=== PATIENT | female | born 1995 | race Caucasian/White ===

== ENCOUNTER 2016-09-08 18:55 | Outpatient (CLI) | payer BC ==
[2016-09-08 19:54] LABS: Appearance,Urine Clear (Clear); Bilirubin,Urine Negative (Negative); Glucose,Urine (UA) Negative (Negative); Ketones,Urine Negative (Negative); Leukocyte Esterase,Urine Negative (Negative); Nitrite,Urine Negative (Negative); Protein,Urine Negative (Negative); Specific Gravity,Urine 1.007 (1.001-1.035); UA Billing (MACRO vs. MICRO) CHEM; Urobilinogen,Urine <2.0 mg/dL (<2.0)
[2016-09-08 20:10] VITALS: BP 127/75; PULSE 98; RESP 17; TEMP 98.3
== END 2016-09-08 19:59 | disposition home or self-care (01) ==
LOC: FBPOP 18:55
PROVIDERS: ATTEND Obstetrics & Gynecology
DX: O26.93 Pregnancy related conditions, unspecified, third trimester (principal); Z3A.00 Weeks of gestation of pregnancy not specified
CPT/HCPCS: 81003; 99213

== ENCOUNTER → 2016-09-17 | Outpatient (CLI) | payer BC, OTHER ==
--- NOTE | 2016-09-17 10:22 | US ---
EXAMINATION TYPE: US venous doppler duplex LE LT DATE OF EXAM: 09/17/2016 10:11 AM COMPARISON: NONE CLINICAL HISTORY: 21-year-old female with LLE Leg Pain r60.0 Edema Left Leg M79.605. Left leg pain an d swelling x 1 week SIDE PERFORMED: Left TECHNIQUE: The lower extremity deep venous system is examined utilizing real time linear array sonog regan with graded compression, doppler sonography and color-flow sonography. FINDINGS: VESSELS IMAGED: External Iliac Vein (EIV) Common Femoral Vein Deep Femoral Vein Greater Saphenous Vein * Femoral Vein Popliteal Vein Small Saphenous Vein * Proximal Calf Veins (* superficial vessels) Left Leg: Appears negative for DVT IMPRESSION: No evidence for DVT within the left lower extremity imaged from the groin to the upper calf.
== END ==
LOC: RADUSWWP 09:37
PROVIDERS: ATTEND Family Medicine
DX: M79.605 Pain in left leg (principal); R60.0 Localized edema

== ENCOUNTER 2016-09-21 08:17 | Outpatient (CLI) | payer BC, OTHER ==
[2016-09-21 09:05] VITALS: BP 106/55; PULSE 71; RESP 20; TEMP 96.3
[2016-09-21 09:19] LABS: Appearance,Urine Clear (Clear); Bilirubin,Urine Negative (Negative); Glucose,Urine (UA) Negative (Negative); Ketones,Urine Negative (Negative); Leukocyte Esterase,Urine Negative (Negative); Nitrite,Urine Negative (Negative); PH, Urine 6.5 (5.0-8.0); Protein,Urine Negative (Negative); Specific Gravity,Urine 1.009 (1.001-1.035); UA Billing (MACRO vs. MICRO) CHEM; Urobilinogen,Urine <2.0 mg/dL (<2.0)
--- NOTE | 2016-09-25 10:01 | P.MSEPDOC ---
Presenting Problems - Arrival Data Date of Arrival on Unit: 09/21/16 Time of Arrival on Unit: 08:30 Mode of Transport: Ambulatory - Complaint OB-Reason for Admission/Chief Complaint: Pain Comment: Cramping since 299. States pain is a 4 on 0-10 scale at it's worst. States that pain is pretty much constant. Medical History - Information : 1 Para: 0 Term: 0 : 0 Abortions: Spontaneous or Elective: 0 Number of Living Children: 0 - Gestational Age Expected Date of Delivery: 12/14/16 Gestational Age by SCOTTIE (wks/days): 28 Weeks and 4 Days Review of Systems - Review of Systems Constitutional: No problems Breast: No problems ENT: No problems Cardiovascular: No problems Respiratory: No problems Gastrointestinal: No problems Genitourinary: No problems Musculoskeletal: No problems Neurological: No problems Skin: No problems Vital Signs - Temperature Temperature: 96.3 F Temperature Source: Temporal Artery Scan - Pulse Right Brachial Pulse Rate: 71 Pulse Assessment Method: Automatic Cuff - Respirations Respiratory Rate: 20 Oxygen Delivery Method: Room Air O2 Sat by Pulse Oximetry: 98 - Blood Pressure Right Arm Blood Pressure: 106/55 Blood Pressure Mean: 72 Blood Pressure Source: Automatic Cuff Medical Screen Scoring (Pre) - Cervical Exam Dilation: 0 cm = 0 Membranes: Intact - Uterine Contractions Frequency: N/A Duration: N/A Intensity: N/A - Maternal Vital Signs Maternal Temperature: N/A Maternal Blood Pressure: N/A Signs of Preeclampsia: N/A Maternal Respirations: N/A - Maternal Trauma Maternal Trauma: N/A - Assessment Baseline FHR: 140 Heart Rate - NICHD Category: Category I (Normal) = 0 Station: N/A - Total Score Total Score (Pre): 0 - Level of Risk Level of Risk: Low (0-5) Physician Notification (Pre) - Physician Notified Physician Notified Date: 09/21/16 Physician Notified Time: 09:05 Physician/Practitioner Notifed:: Dr. Sultana Spoke With: Dr. Sultana New Order Received: Yes Medical Screen Scoring (Post) - Cervical Exam Dilation: 0 cm = 0 Membranes: Intact - Uterine Contractions Frequency: N/A Duration: N/A Intensity: N/A - Maternal Vital Signs Maternal Temperature: N/A Maternal Blood Pressure: N/A Signs of Preeclampsia: N/A Maternal Respirations: N/A - Maternal Trauma Maternal Trauma: N/A - Assessment Heart Rate: 135 Heart Rate - NICHD Category: Category I (Normal) = 0 Position: N/A Station: N/A - Total Score Total Score (Post): 0 - Post Treatment Level of Risk Post Treatment Level of Risk: Low (0-5) Physician Notification (Post) - Physician Notified Physician Notified Date: 09/21/16 Physician Notified Time: 10:05 Physician/Practitioner Notified:: Dr. Sultana Spoke With: Dr. Sultana New Order Received: Yes Disposition - Disposition OB Disposition: Triage, Discharge to home Transferred to:: Home Discharge Date: 09/21/16 Discharge Time: 10:10 I agree with the RN Medical Screening Exam: Yes Risk & Benefit of care provided described in d/c instruction: Yes Diagnosis: UNSPECIFIED ABDOMINAL PAIN
== END 2016-09-21 10:10 | disposition home or self-care (01) ==
LOC: FBPOP 08:17
PROVIDERS: ATTEND Obstetrics & Gynecology
DX: O99.89 Other specified diseases and conditions complicating pregnancy, childbirth and the puerperium (principal); R10.9 Unspecified abdominal pain; Z3A.28 28 weeks gestation of pregnancy
CPT/HCPCS: 81003; 82731; 99213

== ENCOUNTER 2016-11-29 09:13 | Outpatient (CLI) | payer BC, OTHER ==
[2016-11-29 10:07] VITALS: BP 109/64; PULSE 95; RESP 16; TEMP 96.2
--- NOTE | 2016-12-02 19:53 | P.MSEPDOC ---
Presenting Problems - Arrival Data Date of Arrival on Unit: 11/29/16 Time of Arrival on Unit: 09:24 Mode of Transport: Ambulatory - Complaint OB-Reason for Admission/Chief Complaint: Other Comment: diahrrea and cramping x2 days. Medical History - Information : 1 Para: 0 Term: 0 : 0 Abortions: Spontaneous or Elective: 0 Number of Living Children: 0 - Gestational Age Expected Date of Delivery: 12/14/16 Gestational Age by SCOTTIE (wks/days): 38 Weeks and 2 Days Review of Systems - Review of Systems Constitutional: No problems Breast: No problems ENT: No problems Cardiovascular: No problems Respiratory: No problems Gastrointestinal: No problems Genitourinary: No problems Musculoskeletal: No problems Neurological: No problems Skin: No problems Comment: hx ashma. no meds Vital Signs - Temperature Temperature: 96.2 F Temperature Source: Tympanic - Pulse Right Radial Pulse Rate: 95 Pulse Assessment Method: Automatic Cuff - Respirations Respiratory Rate: 16 Oxygen Delivery Method: Room Air O2 Sat by Pulse Oximetry: 98 - Blood Pressure Right Arm Blood Pressure: 109/64 Blood Pressure Mean: 79 Blood Pressure Source: Automatic Cuff Medical Screen Scoring (Pre) - Cervical Exam Dilation: 1-3 cm = 1 Membranes: Intact - Uterine Contractions Frequency: N/A - Maternal Vital Signs Maternal Temperature: N/A Maternal Blood Pressure: N/A Signs of Preeclampsia: N/A Maternal Respirations: N/A - Maternal Trauma Maternal Trauma: N/A - Assessment Baseline FHR: 130 Heart Rate - NICHD Category: Category I (Normal) = 0 NST: Reactive Position: N/A Station: N/A - Total Score Total Score (Pre): 1 - Level of Risk Level of Risk: Low (0-5) Physician Notification (Pre) - Physician Notified Physician Notified Date: 11/29/16 Physician Notified Time: 10:00 Physician/Practitioner Notifed:: ingrid Spoke With: ingrid New Order Received: Yes (discharge home) Disposition - Disposition OB Disposition: Discharge to home, Written follow up instructions reviewed Discharge Date: 11/29/16 Discharge Time: 10:30 I agree with the RN Medical Screening Exam: Yes Risk & Benefit of care provided described in d/c instruction: Yes Diagnosis: DIARRHEA, UNSPECIFIED
== END 2016-11-29 10:30 | disposition home or self-care (01) ==
LOC: FBPOP 09:13
PROVIDERS: ATTEND Obstetrics & Gynecology
DX: O99.89 Other specified diseases and conditions complicating pregnancy, childbirth and the puerperium (principal); R19.7 Diarrhea, unspecified; Z3A.38 38 weeks gestation of pregnancy
CPT/HCPCS: 59025; 99213

== ENCOUNTER 2016-12-15 16:16 | Outpatient (CLI) | payer BC ==
[2016-12-15 17:36] VITALS: BP 127/75; PULSE 74; RESP 18; TEMP 98.1
--- NOTE | 2016-12-29 13:25 | P.MSEPDOC ---
Presenting Problems - Arrival Data Date of Arrival on Unit: 12/15/16 Time of Arrival on Unit: 16:45 Mode of Transport: Ambulatory - Complaint OB-Reason for Admission/Chief Complaint: Possible Onset of Labor Medical History - Information : 1 Para: 0 Term: 0 : 0 Abortions: Spontaneous or Elective: 0 Number of Living Children: 0 - Gestational Age Expected Date of Delivery: 12/14/16 Gestational Age by SCOTTIE (wks/days): 42 Weeks and 1 Days Review of Systems - Review of Systems Constitutional: No problems Breast: No problems ENT: No problems Cardiovascular: No problems Respiratory: No problems Gastrointestinal: No problems Genitourinary: No problems Musculoskeletal: No problems Neurological: No problems Skin: No problems Vital Signs - Temperature Temperature: 98.1 F Temperature Source: Oral - Pulse Right Brachial Pulse Rate: 74 Pulse Assessment Method: Automatic Cuff - Respirations Respiratory Rate: 18 Oxygen Delivery Method: Room Air O2 Sat by Pulse Oximetry: 98 - Blood Pressure Right Arm Blood Pressure: 127/75 Blood Pressure Mean: 92 Blood Pressure Source: Automatic Cuff Medical Screen Scoring (Pre) - Cervical Exam Dilation: Exam Deferred Effacement: Exam Deferred - Uterine Contractions Frequency: > or = 36 weeks =2 Duration: N/A Intensity: N/A - Maternal Vital Signs Maternal Temperature: N/A Maternal Blood Pressure: N/A Signs of Preeclampsia: N/A Maternal Respirations: N/A - Maternal Trauma Maternal Trauma: N/A - Assessment Baseline FHR: 130 Heart Rate - NICHD Category: Category I (Normal) = 0 NST: Reactive Position: N/A Station: N/A - Total Score Total Score (Pre): 2 - Level of Risk Level of Risk: N/A Physician Notification (Pre) - Physician Notified Physician Notified Date: 12/15/16 Physician Notified Time: 17:00 Physician/Practitioner Notifed:: YES Spoke With: HOWARD New Order Received: Yes - Notification Comment Comment: OBSERVE FOR ACTIVE LABOR Medical Screen Scoring (Post) - Cervical Exam Dilation: 1-3 cm = 1 Membranes: Intact - Uterine Contractions Frequency: > or = 36 weeks =2 Duration: > 40 seconds = 2 Intensity: N/A - Maternal Vital Signs Maternal Temperature: N/A Maternal Blood Pressure: N/A Signs of Preeclampsia: N/A Maternal Respirations: N/A - Maternal Trauma Maternal Trauma: N/A - Assessment Heart Rate: 130 Heart Rate - NICHD Category: Category I (Normal) = 0 NST: Reactive Position: N/A Station: N/A - Total Score Total Score (Post): 5 - Post Treatment Level of Risk Post Treatment Level of Risk: Low (0-5) Physician Notification (Post) - Physician Notified Physician Notified Date: 12/15/16 Physician Notified Time: 18:05 Physician/Practitioner Notified:: yes Spoke With: howard New Order Received: Yes - Notification Comment Comment: discharge home Disposition - Disposition OB Disposition: Discharge to home Discharge Date: 12/15/16 Discharge Time: 18:10 I agree with the RN Medical Screening Exam: Yes Risk & Benefit of care provided described in d/c instruction: Yes Diagnosis: ENCOUNTER FOR FULL-TERM UNCOMPLICATED DELIVERY
== END 2016-12-15 18:10 | disposition home or self-care (01) ==
LOC: FBPOP 16:16
PROVIDERS: ATTEND Obstetrics & Gynecology
DX: Z34.83 Encounter for supervision of other normal pregnancy, third trimester (principal); Z3A.42 42 weeks gestation of pregnancy
CPT/HCPCS: 59025; 99213

== ENCOUNTER 2016-12-16 03:10 | Inpatient (IN) | payer BC, OTHER ==
[2016-12-16] MEDS ORDERED: METHYLERGONOVINE 0.2 MG/ML 1 ML AMP IM PRN (03:38)
[2016-12-16] MEDS ORDERED: CARBOPROST TROMETHAMINE 250 MCG/ML 1 ML AMP IM PRN (03:38)
[2016-12-16] MEDS ORDERED: OXYTOCIN 10 UNIT/ML 1 ML VIAL IM PRN (03:38)
[2016-12-16] MEDS ORDERED: TERBUTALINE 1 MG/ML VIAL SQ PRN (03:38)
[2016-12-16] MEDS ORDERED: LIDOCAINE 1% (PF) 10 MG/ML (30 ML SDV) SQ PRN (03:38)
[2016-12-16] MEDS ORDERED: OXYTOCIN 20 UNITS/1000 ML NS 1,000 ML IV SCH ×2 (03:45→12:30)
[2016-12-16 04:02] VITALS: BMI 34.2
[2016-12-16] MEDS: LACTATED RINGERS 1,000 ML IV SCH ×4 (04:10→23:06)
[2016-12-16 04:15] LABS: Basophils % (A) 0 %; CH 28.9; CHCM 33.9; Eosinophils # (A) 0.2 k/uL (0-0.7); Eosinophils % (A) 2 %; HCT 33.5 % (34.0-46.0); HGB 10.9 gm/dL (11.4-16.0); Luc # (Auto) 0.11; Luc % (Auto) 1; Lymphocytes # (A) 1.6 k/uL (1.0-4.8); Lymphocytes % (A) 13 %; MCHC 32.7 g/dL (31.0-37.0); MCV 85.7 fL (80.0-100.0); Monocytes # (A) 0.5 k/uL (0-1.0); Monocytes % (A) 4 %; Neutrophils # (A) 9.7 k/uL (1.3-7.7); Neutrophils % (A) 80 %; RBC 3.91 m/uL (3.80-5.40); RDW 14.1 % (11.5-15.5); WBC 12.1 k/uL (3.8-10.6); WBC (Perox) 12.75
[2016-12-16] MEDS: BUTORPHANOL 1 MG/ML 1 ML VIAL IV PRN ×2 (04:22→07:16)
[2016-12-16] MEDS ORDERED: fentaNYL (PF) 50 MCG/ML 5 ML AMP ONE ×2 (08:47→10:52)
[2016-12-16] MEDS ORDERED: BUPIVACAINE (PF) 0.25% 30 ML VIAL ONE ×2 (08:47→10:52)
[2016-12-16] MEDS ORDERED: SODIUM CHLORIDE 0.9% 100 ML BAG ONE ×2 (08:47→10:52)
--- NOTE | 2016-12-16 09:43 | P.HPOB ---
History of Present Illness H&P Date: 12/16/16 Chief Complaint: Contractions MRSA is a very pleasant 21-year-old 1 para 0 at 40-2/7 weeks, EDC 12/14 that presented to labor and delivery with complaints of contractions. She states the contractions have increased in nature since her earlier visit to labor and delivery she did deny loss of fluid. She notes good movement and denies vaginal bleeding. Review of Systems Constitutional: Reports as per HPI, Denies chills, Denies fever Past Medical History Past Medical History: No Reported History History of Any Multi-Drug Resistant Organisms: None Reported Past Surgical History: No Surgical Hx Reported Past Anesthesia/Blood Transfusion Reactions: No Reported Reaction Past Psychological History: No Psychological Hx Reported Smoking Status: Never smoker - Past Family History Father Family Medical History: No Reported History Medications and Allergies Home Medications Medication Instructions Recorded Confirmed Type Pnv,Calcium 72/Iron/Folic Acid 1 each PO DAILY 09/08/16 12/16/16 History [ Plus Tablet] Allergies Allergy/AdvReac Type Severity Reaction Status Date / Time No Known Allergies Allergy Verified 12/16/16 03:24 Exam Osteopathic Statement: *. No significant issues noted on an osteopathic structural exam other than those noted in the History and Physical/Consult. - Vital Signs Vital signs: Vital Signs Temp Pulse Resp BP Pulse Ox 12/16/16 03:57 97.6 F 82 16 116/63 98 12/16/16 03:25 96.7 F L 82 16 116/63 98 Intake and Output 12/15/16 12/16/16 12/16/16 22:59 06:59 14:59 Other: # Voids 1 Weight 93.44 kg - OBG Physical Exam Vulva: both: normal Cervix: 4 cm dilated, per RN on admission Uterus: Gravid and appropriate for gestational age Anus/Rectum: normal perianal skin Results Result Diagrams: 12/16/16 04:05 Abnormal Lab Results - Last 24 Hours (Table) 12/16/16 Range/Units 04:05 WBC 12.1 H (3.8-10.6) k/uL Hgb 10.9 L (11.4-16.0) gm/dL Hct 33.5 L (34.0-46.0) % Neutrophils # 9.7 H (1.3-7.7) k/uL Assessment and Plan (1) Active labor at term Narrative/Plan: Patient is admitted to labor and delivery for expectant management, pain control per patient request, anticipate spontaneous vaginal delivery Status: Acute
[2016-12-16] MEDS ORDERED: BUPIVACAINE (PF) 0.25% 25 ML, fentaNYL (PF) 200 MCG in SODIUM CHLORIDE 0.9% 71 ML EPIDURAL ONE (09:48)
[2016-12-16] MEDS ORDERED: KETOROLAC 30 MG/ML 1 ML VIAL ONE (10:52)
[2016-12-16] MEDS ORDERED: ACETAMINOPHEN IV (For NPO) 1,000 MG/100 ML VIAL ONE (10:52)
[2016-12-16] MEDS ORDERED: OXYTOCIN 10 UNIT/ML 1 ML VIAL ONE (10:52)
--- NOTE | 2016-12-16 11:48 | P.OP ---
Date of Procedure: 12/16/16 Preoperative Diagnosis: Intrauterine at 40-2/7 weeks, nonreassuring heart tones, meconium-stained fluid remote from delivery Postoperative Diagnosis: Same Procedure(s) Performed: Primary low transverse section Implants: Anesthesia: epidural Surgeon: Bianca Núñez [employer] #1: Bubba Lara Estimated Blood Loss (ml): 500 IV fluids (ml): 1,250 Urine output (ml): 200 Pathology: other (Placenta) Condition: stable Disposition: observation Indications for Procedure: This is a 21-year-old 1 para 0 that presented to labor and delivery with complaints of active labor. On admission she was 4 cm 90% effaced at a -2 station. She progressed in labor to 5-680% -1. At this time she requested an epidural. Epidural was placed without difficulty. Pain control was good after a certain amount of time, artificial rupture of membranes was performed and meconium-stained fluid was noted. heart tones were noted to be reassuring with moderate variability after rupture of membranes but subsequent decelerations were noted down to the 80s and 90s therefore the decision was made to perform a primary low transverse section secondary to nonreassuring heart tones and remoteness from delivery. Operative Findings: Normal uterus tubes and ovaries were appreciated Description of Procedure: The patient was prepped and draped in the usual fashion after spinal anesthesia was administered by the anesthesia department . A Pfannenstiel incision was made and extended of the abdominal cavity without difficulty. The bladder peritoneum was elevated and incised and reflected distally. A 2 cm incision was made in the transverse plane of the lower uterine segment to enter the uterus at which time meconium stained fluid was noted. The incision was extended in both directions bluntly. The head was encountered within the field and delivered up and through the incision where the nose and mouth were thoroughly suctioned. Remainder of the was delivered onto the surgical field where the cord was doubly clamped, cut, and the was passed for resuscitative measures with weight 7-14 and Apgars 9 9 at 1 and 5 mins . A segment of cord was then doubly clamped, cut, and set aside should cord gases become necessary. The placenta was delivered manually, intact, and was grossly normal with a grossly normal three-vessel cord. The uterus was exteriorized and the interior cavity of the uterus swept of any remaining placental and membranous fragments with a laparotomy sponge. The margins of the incision were grasped with brenton clamps and the incision closed. . First layer was a running locking layer of 0 vicryl. Any small points of bleeding were then made hemostatic with the Bovie. Once hemostasis was achieved, the posterior cul-de- sac was suctioned with a guard and the uterine and ovarian findings are as noted above. The uterus was replaced within the abdominal cavity and the gutters swept of any remaining blood fluid or clot. The incision was again reexamined and hemostasis was noted to be excellent. Any small point of bleeding were made hemostatic with the Bovie. Once hemostasis was achieved the parietal peritoneum was loosely reapproximated. The layer of muscles were examined and made hemostatic with the Bovie. Attention was then turned to the fascia which was closed with 0 running stitches of 0 Vicryl proceeding from the lateral margins to the midpoint. The subcutaneous tissues were irrigated, made hemostatic with the Bovie.. The skin was reapproximated with 4-0. Estimated blood loss for the case was approximately 500 mL. All sponge instrument and needle counts are correct. There were no complications. The patient tolerated the procedure well and proceeded to the recovery room in stable condition. Both mother and infant are resting comfortably in recovery.
[2016-12-16] MEDS ORDERED: IBUPROFEN 600 MG TAB PO PRN (12:25)
[2016-12-16] MEDS ORDERED: SIMETHICONE 80 MG CHEWABLE PO PRN (12:25)
[2016-12-16] MEDS ORDERED: ONDANSETRON 4 MG/2 ML VIAL IVP PRN (12:25)
[2016-12-16] MEDS ORDERED: METOCLOPRAMIDE 5 MG/ML 2 ML VIAL IVP PRN (12:25)
[2016-12-16] MEDS ORDERED: diphenhydrAMINE 50 MG CAP PO PRN (12:25)
[2016-12-16] MEDS ORDERED: ZOLPIDEM 5 MG TAB PO PRN (12:25)
[2016-12-16] MEDS ORDERED: NALOXONE 0.4 MG/ML 1 ML VIAL IV PRN (12:25)
[2016-12-16] MEDS ORDERED: diphenhydrAMINE 25 MG CAP PO PRN (12:25)
[2016-12-16] MEDS ORDERED: ACETAMINOPHEN TAB 325 MG TAB PO PRN (12:25)
[2016-12-16] MEDS ORDERED: diphenhydrAMINE 50 MG/ML 1 ML VIAL IVP PRN ×2 (12:25)
[2016-12-16] MEDS ORDERED: CITRIC ACID-SODIUM CITRATE 15 ML CUP PO ONE (12:29)
[2016-12-16] MEDS ORDERED: MORPHINE SULFATE 2 MG/ML SYRINGE IVP PRN (16:16)
[2016-12-16] MEDS ORDERED: ACETAMINOPHEN IV (For NPO) 1,000 MG in EMPTY BAG 1 BAG IVPB PRN (16:18)
[2016-12-16] MEDS: IBUPROFEN IV 600 MG in SODIUM CHLORIDE 0.9% 250 ML IV SCH (18:49)
[2016-12-16] MEDS: ceFAZolin 2 GM in SODIUM CHLORIDE 0.9% 100 ML IVPB SCH (19:45)
[2016-12-16] MEDS: SENNOSIDES-DOCUSATE SODIUM 1 EACH TAB PO SCH (22:24)
[2016-12-17] MEDS: IBUPROFEN IV 600 MG in SODIUM CHLORIDE 0.9% 250 ML IV SCH ×3 (00:35→21:14)
[2016-12-17] MEDS: LACTATED RINGERS 1,000 ML IV SCH ×2 (02:53→14:19)
[2016-12-17] MEDS: ceFAZolin 2 GM in SODIUM CHLORIDE 0.9% 100 ML IVPB SCH (03:10)
[2016-12-17 07:01] LABS: Basophils % (A) 0 %; CH 28.8; CHCM 32.9; Eosinophils # (A) 0.1 k/uL (0-0.7); Eosinophils % (A) 1 %; HCT 27.8 % (34.0-46.0); HDW 3.22; Luc # (Auto) 0.14; Luc % (Auto) 1; Lymphocytes # (A) 1.2 k/uL (1.0-4.8); Lymphocytes % (A) 11 %; MCH 28.2 pg (25.0-35.0); MCHC 32.1 g/dL (31.0-37.0); MCV 87.9 fL (80.0-100.0); Monocytes # (A) 0.5 k/uL (0-1.0); Monocytes % (A) 5 %; Neutrophils # (A) 8.9 k/uL (1.3-7.7); Neutrophils % (A) 81 %; RBC 3.17 m/uL (3.80-5.40); RDW 14.3 % (11.5-15.5)
[2016-12-17 07:04] LABS: HGB 8.9 gm/dL (11.4-16.0)
--- NOTE | 2016-12-17 08:42 | P.PNOBGPC ---
Subjective - Subjective Patient reports: Reports appetite normal, Reports voiding normally, Reports pain well controlled, Reports ambulating normally : doing well Objective - Vital Signs Latest vital signs: Vital Signs Temp Pulse Pulse Resp BP Pulse Ox 12/17/16 04:00 98.1 F 75 20 98/62 100 12/17/16 00:00 98.1 F 80 18 112/69 100 12/16/16 20:00 98.4 F 80 18 98/70 100 12/16/16 17:05 98/52 12/16/16 15:30 97.5 F L 76 16 95/55 98 12/16/16 13:55 98.4 F 80 18 106/60 12/16/16 13:15 98.6 F 79 18 107/56 97 12/16/16 12:45 114 H 18 127/76 12/16/16 12:15 101 H 18 114/55 98 12/16/16 12:00 107 H 20 125/63 98 12/16/16 11:45 96.7 F L 108 H 18 124/59 98 Intake and Output 12/16/16 12/17/16 12/17/16 22:59 06:59 14:59 Output Total 205 1000 Balance -2049 -1000 Output: Urine 1550 1000 Estimated Blood Loss 500 - Exam Extremities: Present: normal Abdomen: Present: normal appearance, soft. Absent: distention, tenderness Incision: Present: normal, dry, intact Uterus: Present: normal, firm (The uterine fundus as tonic and nontender at the umbilicus.) - Labs Labs: Abnormal Lab Results - Last 24 Hours (Table) 12/17/16 Range/Units 06:30 WBC 11.0 H (3.8-10.6) k/uL RBC 3.17 L (3.80-5.40) m/uL Hgb 8.9 L D (11.4-16.0) gm/dL Hct 27.8 L (34.0-46.0) % Neutrophils # 8.9 H (1.3-7.7) k/uL Assessment and Plan (1) S/P section Narrative/Plan: Continue routine postoperative care. I will transition her to oral Tylenol 3 for pain control. I have encouraged her to ambulate in the halls at least 4 times daily. Possible discharge tomorrow morning pending no complications and the patient desire to be discharged. Current Visit: Yes Status: Acute Code(s): Z98.891 - HISTORY OF UTERINE SCAR FROM PREVIOUS SURGERY SNOMED Code(s): 177842727
[2016-12-17] MEDS ORDERED: Acetaminophen-Codeine 300-30mg TAB PO PRN (08:50)
[2016-12-17] MEDS: Acetaminophen-Codeine 300-30mg TAB PO PRN ×3 (09:05→21:09)
[2016-12-17] MEDS: SENNOSIDES-DOCUSATE SODIUM 1 EACH TAB PO SCH ×2 (09:06→21:11)
[2016-12-17] MEDS: IBUPROFEN 600 MG TAB PO SCH ×2 (12:51→18:45)
[2016-12-18 00:02] VITALS: RESP 16
[2016-12-18] MEDS: Acetaminophen-Codeine 300-30mg TAB PO PRN (03:11)
[2016-12-18] MEDS: IBUPROFEN 600 MG TAB PO SCH ×2 (08:10)
[2016-12-18] MEDS: SENNOSIDES-DOCUSATE SODIUM 1 EACH TAB PO SCH (08:11)
[2016-12-18 08:21] VITALS: BP 104/58; PULSE 81; TEMP 98
--- NOTE | 2016-12-18 08:45 | P.DS ---
Providers Date of admission: 12/16/16 03:36 Expected date of discharge: 12/18/16 Attending physician: Balta Sultana Primary care physician: Balta Sultana - Discharge Diagnosis(es) (1) S/P section Current Visit: Yes Status: Acute Hospital Course: The patient is a 21-year-old 1 para 0 admitted at 40-2/7 weeks by good dating parameters perches admitted in early labor with all signs reassuring. She progressed to approximately 5-6 cm and had an epidural catheter placed for analgesia. She then underwent artificial rupture of membranes demonstrating meconium-stained fluid. She sure thereafter began to develop nonreassuring heart pattern. She was therefore taken to the operating room for primary low-transverse section at which time she was delivered of a viable 7 lbs. 14 oz. baby girl with Apgars of 9 at 1 minute and 9 at 5 minutes. Her postoperative course was unremarkable vital signs remaining stable and her temperature was afebrile throughout. She was deemed stable for discharge on postoperative day #2 was discharged home to follow-up in the office in 2 weeks for an incision check and 6 weeks routinely. Discharge instructions included calling for any significantly increased bleeding or foul-smelling lochia, significantly increased fever or abdominal pain, perineal complaints, breast complaints, incisional complaints, or anything else that concerned her. She was additionally instructed to have nothing in the vagina for at least 6 weeks time to include intercourse and to abstain from any heavy lifting over the same period of time perches lastly to do no driving until off of all pain medications or 2 weeks' time, whichever came first. She understood her instructions and agrees to follow up as noted above. Discharge medications included a prescription for Tylenol 3, 1-2 by mouth every 6 hours when necessary pain, #30 dispensed with no refills. She is additionally to use over- the-counter analgesic pain medications as necessary and to continue with vitamins daily as she has opted to breast-feed. Maternal blood type is O+ and rubella status is immune. Discharge hemoglobin and hematocrit were 8.9 and 27.8 respectively. Procedures: #1. Epidural analgesia 2. Artificial rupture of membranes 3. Primary low- transverse section Patient Condition at Discharge: Good Plan - Discharge Summary New Discharge Prescriptions: New Acetaminophen-Codeine 300-30mg [Tylenol #3] 2 tab PO Q6H PRN #30 tablet PRN Reason: Pain No Action Pnv,Calcium 72/Iron/Folic Acid [ Plus Tablet] 1 each PO DAILY Discharge Medication List Pnv,Calcium 72/Iron/Folic Acid [ Plus Tablet] 1 each PO DAILY 09/08/16 [ History] Acetaminophen-Codeine 300-30mg [Tylenol #3] 2 tab PO Q6H PRN #30 tablet [Rx] Follow up Appointment(s)/Referral(s): Balta Sultana MD [Primary Care Provider] - 2 Weeks Discharge Disposition: HOME SELF-CARE
== END 2016-12-18 13:45 | disposition home or self-care (01) | DRG 766 ==
LOC: FBPOP 03:10 → 4FBP 03:36
PROVIDERS: ADMIT Obstetrics & Gynecology Obstetrics; ATTEND Obstetrics & Gynecology
PROC: 10D00Z1 Extraction of Products of Conception, Low, Open Approach (ICD-10-PCS; principal; 2016-12-16 11:31)
PROC: 3E0R3CZ (ICD-10-PCS; principal; 2016-12-16 11:31)
PROC: 00HU33Z Insertion of Infusion Device into Spinal Canal, Percutaneous Approach (ICD-10-PCS; principal; 2016-12-16 11:31)
DX: O76 Abnormality in fetal heart rate and rhythm complicating labor and delivery (principal); O77.0 Labor and delivery complicated by meconium in amniotic fluid; Z37.0 Single live birth; Z3A.40 40 weeks gestation of pregnancy
CPT/HCPCS: 59025; 85025; 88307; 99213

== ENCOUNTER 2019-08-20 07:44 | Outpatient (CLI) | payer BC, OTHER ==
[2019-08-20 08:48] LABS: Amorphous Sediment,Urine Few /hpf; Appearance,Urine Turbid (Clear); Bacteria,Urine Rare /hpf; Bilirubin,Urine Negative (Negative); Blood,Urine Negative (Negative); Color,Urine Light Yellow; Glucose,Urine (UA) Negative (Negative); Ketones,Urine Negative (Negative); Leukocyte Esterase,Urine Negative (Negative); Mucus,Urine Rare /hpf; Nitrite,Urine Negative (Negative); Protein,Urine Negative (Negative); Squamous Epithelial Cell,Urine <1 /hpf (0-4); Urobilinogen,Urine <2.0 mg/dL (<2.0)
[2019-08-20 09:49] VITALS: BP 112/65; PULSE 88; RESP 16; TEMP 97.4
--- NOTE | 2019-08-26 10:52 | P.MSEPDOC ---
Presenting Problems - Arrival Data Date of Arrival on Unit: 08/20/19 Time of Arrival on Unit: 07:44 Mode of Transport: Ambulatory - Complaint OB-Reason for Admission/Chief Complaint: Possible Onset of Labor, Scheduled C- Section Comment: contractions w/back pain since 399 Medical History - Information : 2 Para: 1 Term: 1 : 0 Abortions: Spontaneous or Elective: 0 Number of Living Children: 1 - Gestational Age Gestational Age by SCOTTIE (wks/days): 37 Weeks and 6 Days - History Complications: Prior Review of Systems - Review of Systems Constitutional: No problems Breast: No problems ENT: No problems Cardiovascular: No problems Respiratory: No problems Gastrointestinal: No problems Genitourinary: No problems Musculoskeletal: No problems Neurological: No problems Skin: No problems Vital Signs - Temperature Temperature: 97.4 F Temperature Source: Temporal Artery Scan - Pulse Right Brachial Pulse Rate: 88 Pulse Assessment Method: Automatic Cuff - Respirations Respiratory Rate: 16 Oxygen Delivery Method: Room Air - Blood Pressure Right Arm Blood Pressure: 112/65 Blood Pressure Mean: 80 Blood Pressure Source: Automatic Cuff Medical Screen Scoring (Pre) - Cervical Exam Dilation: 0 cm = 0 Membranes: Intact - Uterine Contractions Frequency: > 5 minutes apart = 1 Duration: N/A Intensity: N/A - Maternal Vital Signs Maternal Temperature: N/A Maternal Blood Pressure: N/A Signs of Preeclampsia: N/A Maternal Respirations: N/A - Maternal Trauma Maternal Trauma: N/A - Assessment - Baby A Baseline FHR: 135 Heart Rate - NICHD Category: Category I (Normal) = 0 NST: Reactive Position: N/A Station: N/A - Total Score - Baby A Total Score - Baby A: 1 - Total Score - Baby B Total Score - Baby B: 1 - Total Score - Baby C Total Score - Baby C: 1 - Level of Risk - Baby A Level of Risk - Baby A: Low (0-5) - Level of Risk - Baby B Level of Risk - Baby B: Low (0-5) - Level of Risk - Baby C Level of Risk - Baby C: Low (0-5) Physician Notification (Pre) - Physician Notified Physician Notified Date: 08/20/19 Physician Notified Time: 08:50 New Order Received: Yes (d/c if no cervical change) - Notification Comment Comment: UA wnl, orders recheck. cervix at one hour michelle and if no change then discharge to home with instruction. Dilatation: Closed /Effacement: Thick /Station: High Disposition - Disposition OB Disposition: Triage, Discharge to home Discharge Date: 08/20/19 Discharge Time: 09:30 I agree with the RN Medical Screening Exam: Yes Risk & Benefit of care provided described in d/c instruction: Yes Diagnosis: FALSE LABOR AT OR AFTER 37 COMPLETED WEEKS OF GESTATION
== END 2019-08-20 09:30 | disposition home or self-care (01) ==
LOC: FBPOP 07:44
PROVIDERS: ATTEND Obstetrics & Gynecology Obstetrics
DX: O47.1 False labor at or after 37 completed weeks of gestation (principal); Z3A.37 37 weeks gestation of pregnancy
CPT/HCPCS: 59025; 81001; 99213

== ENCOUNTER 2019-08-28 06:05 | Inpatient (IN) | payer BC, OTHER ==
[2019-08-28] MEDS ORDERED: METHYLERGONOVINE 0.2 MG/ML 1 ML AMP IM PRN (06:23)
[2019-08-28] MEDS ORDERED: CARBOPROST TROMETHAMINE 250 MCG/ML 1 ML AMP IM PRN (06:23)
[2019-08-28] MEDS ORDERED: OXYTOCIN 10 UNIT/ML 1 ML VIAL IM PRN (06:23)
[2019-08-28] MEDS: LACTATED RINGERS 1,000 ML IV SCH ×3 (06:25→18:31)
[2019-08-28] MEDS ORDERED: CITRIC ACID-SODIUM CITRATE 15 ML CUP PO ONE (06:25)
[2019-08-28 06:32] LABS: Basophils % (A) 0 %; Eosinophils # (A) 0.2 k/uL (0-0.7); Eosinophils % (A) 2 %; HCT 31.8 % (34.0-46.0); HGB 10.5 gm/dL (11.4-16.0); Hypochromasia Slight; Lymphocytes # (A) 1.6 k/uL (1.0-4.8); Lymphocytes % (A) 18 %; MCH 27.4 pg (25.0-35.0); MCHC 33.2 g/dL (31.0-37.0); MCV 82.6 fL (80.0-100.0); Mean Platelet Volume 9.1; Monocytes # (A) 0.5 k/uL (0-1.0); Monocytes % (A) 6 %; Neutrophils # (A) 6.6 k/uL (1.3-7.7); Neutrophils % (A) 73 %; Platelet Count 196 k/uL (150-450); Poikilocytosis Slight; RBC 3.85 m/uL (3.80-5.40); RDW 13.7 % (11.5-15.5); WBC 9.1 k/uL (3.8-10.6)
[2019-08-28] MEDS ORDERED: OXYTOCIN 10 UNIT/ML 1 ML VIAL ONE (08:05)
[2019-08-28] MEDS ORDERED: MORPHINE SULFATE (PF) 0.3 MG/0.3 ML SYR ONE (08:05)
[2019-08-28] MEDS ORDERED: ONDANSETRON 4 MG/2 ML VIAL ONE (08:05)
[2019-08-28] MEDS ORDERED: PHENYLEPHRINE-0.9% NACL SYG 1 MG/10 ML SYRINGE ONE (08:05)
[2019-08-28] MEDS ORDERED: NALOXONE 0.4 MG/ML 1 ML VIAL IV PRN ×2 (09:03→09:05)
[2019-08-28] MEDS ORDERED: MORPHINE SULFATE 2 MG/ML SYRINGE IVP PRN (09:03)
[2019-08-28] MEDS ORDERED: ONDANSETRON 4 MG/2 ML VIAL IVP PRN ×2 (09:03→09:05)
[2019-08-28] MEDS ORDERED: diphenhydrAMINE 50 MG/ML 1 ML VIAL IVP PRN ×3 (09:03→09:05)
[2019-08-28] MEDS ORDERED: ACETAMINOPHEN IV (For NPO) 1,000 MG in EMPTY BAG 1 BAG IVPB ONE (09:05)
[2019-08-28] MEDS ORDERED: ACETAMINOPHEN TAB 325 MG TAB PO PRN (09:05)
[2019-08-28] MEDS ORDERED: diphenhydrAMINE 25 MG CAP PO PRN (09:05)
[2019-08-28] MEDS ORDERED: ZOLPIDEM 5 MG TAB PO PRN (09:05)
[2019-08-28] MEDS ORDERED: SIMETHICONE 80 MG CHEWABLE PO PRN (09:05)
[2019-08-28] MEDS ORDERED: diphenhydrAMINE 50 MG CAP PO PRN (09:05)
[2019-08-28] MEDS ORDERED: METOCLOPRAMIDE 5 MG/ML 2 ML VIAL IVP PRN (09:05)
[2019-08-28] MEDS ORDERED: OXYTOCIN 20 UNITS/1000 ML NS 1,000 ML IV SCH (09:15)
--- NOTE | 2019-08-28 09:19 | P.HPOB ---
History of Present Illness H&P Date: 08/28/19 Chief Complaint: IUP at 39 and 0/sevenths weeks. History of 1, d esires repeat This is a pleasant 24-year-old at 39-0/7 weeks that presents for elective repeat section. Patient has a history of a primary for nonreassuring heart tones and elected repeat. Patient has been receiving routine care which has been uncomplicated, patient does have a history of asthma which has been controlled throughout the . Patient notes good movement today, she denies contractions vaginal bleeding or loss of fluid. On blood work shows a blood type of O+, rubella status immune, hepatitis B surface antigen negative, GBS negative, HIV negative. Review of Systems Constitutional: Denies chills, Denies fatigue, Denies fever Ears, nose, mouth and throat: Denies headache Cardiovascular: Reports leg edema Respiratory: Denies cough, Denies dyspnea Gastrointestinal: Denies constipation, Denies diarrhea, Denies nausea, Denies vomiting Genitourinary: Reports Past Medical History Past Medical History: Asthma, GERD/Reflux History of Any Multi-Drug Resistant Organisms: None Reported Past Surgical History: Section Past Anesthesia/Blood Transfusion Reactions: No Reported Reaction, Motion Sickness Past Psychological History: No Psychological Hx Reported Smoking Status: Former smoker Past Alcohol Use History: None Reported Past Drug Use History: None Reported - Past Family History Father Family Medical History: No Reported History Mother Family Medical History: Cancer Medications and Allergies Home Medications Medication Instructions Recorded Confirmed Type Famotidine [Pepcid] 20 mg PO BID PRN 08/26/19 08/28/19 History Levalbuterol Hfa Inhaler [Xopenex 1 - 2 puff INHALATION Q6HR PRN 08/26/19 08/28/19 History Hfa Inhaler] Pnv No.95/Ferrous Fum/Folic AC 1 each PO DAILY 08/26/19 08/28/19 History [ Multivitamin Tablet] Allergies Allergy/AdvReac Type Severity Reaction Status Date / Time No Known Allergies Allergy Verified 08/28/19 06:10 Exam Osteopathic Statement: *. No significant issues noted on an osteopathic structural exam other than those noted in the History and Physical/Consult. 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 Results Result Diagrams: 08/28/19 06:15 Abnormal Lab Results - Last 24 Hours (Table) 08/28/19 Range/Units 06:15 Hgb 10.5 L (11.4-16.0) gm/dL Hct 31.8 L (34.0-46.0) % Assessment and Plan (1) Term Current Visit: Yes Status: Acute Code(s): Z34.90 - ENCNTR FOR SUPRVSN OF NORMAL , UNSP, UNSP TRIMESTER SNOMED Code(s): 85112936 (2) H/O section Current Visit: Yes Status: Acute Code(s): Z98.891 - HISTORY OF UTERINE SCAR FROM PREVIOUS SURGERY SNOMED Code(s): 439152028 Plan: Patient is admitted to labor and delivery for planned elective repeat section. was discussed and all questions are answered. Risks of C- section including but not limited to infection, bleeding, damage to bladder, bowel, injury. Patient states understanding and is taken back to the operating suite.
--- NOTE | 2019-08-28 09:29 | P.OP ---
Date of Procedure: 08/28/19 Preoperative Diagnosis: IUP at 39-0/7 weeks, history of 1, desires elective repeat. Postoperative Diagnosis: Same Procedure(s) Performed: Elective repeat section Anesthesia: spinal Surgeon: Bianca Núñez Casting And Curing Operator #1: Viridiana Guerrero Estimated Blood Loss (ml): 600 IV fluids (ml): 1,200 Urine output (ml): 300 Pathology: none sent Condition: stable Disposition: observation Indications for Procedure: This pleasant 24-year-old at 39-0/7 weeks desires elective repeat section. Operative Findings: Normal uterus tubes and ovaries are appreciated, significant anterior bladder adhesions are noted these were taken down sharply urine was noted to be clear throughout procedure. Description of Procedure: Patient was taken back to the operating suite where spinal anesthesia was found be adequate by the anesthesia department. She was then prepped and draped in normal sterile fashion in the dorsal supine position. A Pfannenstiel skin incision was made with the scalpel and carried through the underlying layer of fascia. The fascia was then incised in the midline and extended laterally. The superior aspect of the fascial incision was then grasped with [place] clamps, elevated and underlying rectus muscles dissected off sharply. The inferior aspect of the fascial incision was then grasped with [place] clamps, elevated and underlying rectus muscles dissected off sharply once again. The rectum muscles were in the midline the peritoneum was identified and entered. A significant bladder adhesions was noted from the lower uterine segment all the way to the uterine fundus. This was taken down sharply and bluntly with good visualization. The bladder blade was then inserted into the pelvis. The hyst erotomy incision was made with the scalpel, amniotomy is performed and clear fluid is noted. The was then delivered in a vertex breech presentation. The umbilical cord was then doubly clamped and cut. The infant was then handed off to awaiting RN. The placenta was then delivered manually, and the uterus was cleared of all clots and debris. The hysterotomy incision was then repaired with 0 Vicryl in a running locked fashion 2. Hemostasis was appreciated. The pelvis was then closely irrigated, uterus was then returned to the abdomen. The gutters were then cleared of all clots and debris. Hysterotomy incision was inspected once again hemostasis was appreciated. Interceed was then placed over the hysterotomy incision. The peritoneum was then loosely reapproximated. The fascia was then closed in a running fashion from one lateral edge the midline and the other lateral edge the midline. The subcutaneous tissue was then irrigated and closed with 3-0 Vicryl. The skin was then closed with 4-0 Vicryl in a subcuticular fashion. All counts are correct 2 patient tolerated delivery well and is resting comfortably. Male delivered at 834, weight of 9 lbs. 2 oz. with Apgars of 9 and 9 and one and 5 minutes respectively.
[2019-08-28] MEDS ORDERED: CELLULOSE,OXIDIZED 1 EACH EACH MISCELLANE ONE (09:45)
[2019-08-28] MEDS ORDERED: IBUPROFEN IV 800 MG in SODIUM CHLORIDE 0.9% 250 ML IV ONE (10:30)
[2019-08-28] MEDS: PRENATAL VIT-IRON-FOLIC ACID 1 EACH CAP PO SCH (10:54)
[2019-08-28] MEDS: SENNOSIDES-DOCUSATE SODIUM 1 EACH TAB PO SCH (20:30)
[2019-08-29] MEDS: IBUPROFEN 600 MG TAB PO PRN ×3 (00:21→23:35)
[2019-08-29] MEDS: LACTATED RINGERS 1,000 ML IV SCH (02:07)
[2019-08-29 05:42] LABS: Basophils % (A) 0 %; Eosinophils # (A) 0.2 k/uL (0-0.7); Eosinophils % (A) 2 %; HCT 29.5 % (34.0-46.0); HGB 9.5 gm/dL (11.4-16.0); Hypochromasia Slight; Lymphocytes # (A) 1.4 k/uL (1.0-4.8); Lymphocytes % (A) 12 %; MCHC 32.4 g/dL (31.0-37.0); MCV 83.3 fL (80.0-100.0); Mean Platelet Volume 9.9; Monocytes # (A) 0.5 k/uL (0-1.0); Monocytes % (A) 4 %; Neutrophils # (A) 9.5 k/uL (1.3-7.7); Neutrophils % (A) 81 %; Platelet Count 172 k/uL (150-450); Poikilocytosis Slight; RBC 3.54 m/uL (3.80-5.40); RDW 13.9 % (11.5-15.5); WBC 11.7 k/uL (3.8-10.6)
[2019-08-29] MEDS: SENNOSIDES-DOCUSATE SODIUM 1 EACH TAB PO SCH ×2 (08:55→20:52)
--- NOTE | 2019-08-29 09:57 | P.PNOBGPC ---
Subjective - Subjective Principal diagnosis: Postop day 1 Patient reports: Reports appetite normal, Reports voiding normally, Reports pain well controlled, Reports ambulating normally, Denies dizzy ambulation, Denies nauseated : doing well Objective - Vital Signs Latest vital signs: Vital Signs Temp Pulse Resp BP Pulse Ox 08/29/19 08:45 93.8 F L 80 16 102/69 08/29/19 06:00 12 98 08/29/19 04:00 97 F L 72 14 105/64 99 08/29/19 02:00 12 99 08/29/19 00:00 97.2 F L 72 14 96/60 98 08/28/19 23:47 14 08/28/19 21:59 98 08/28/19 21:58 14 08/28/19 20:00 96.7 F L 80 14 106/65 98 08/28/19 18:00 16 98 08/28/19 16:00 97.2 F L 65 16 100/66 98 08/28/19 14:03 98 08/28/19 14:00 16 08/28/19 12:03 16 08/28/19 12:00 98.0 F 67 16 105/62 99 08/28/19 11:11 97.3 F L 64 16 101/58 99 08/28/19 10:41 63 16 111/60 98 08/28/19 10:11 64 67 H 90/51 98 08/28/19 10:03 16 L 98 08/28/19 09:56 64 16 111/60 98 Intake and Output 08/28/19 08/29/19 08/29/19 22:59 06:59 14:59 Output Total 750 700 Balance -750 -700 Output: Urine 750 700 Uretheral (Pineda) 500 Other: # Voids 1 1 - Exam Extremities: Present: normal. Absent: edema Abdomen: Present: normal appearance, soft. Absent: distention, tenderness Incision: Present: normal, dry, intact. Absent: erythematous Uterus: Present: normal, firm. Absent: tenderness - Labs Labs: Abnormal Lab Results - Last 24 Hours (Table) 08/29/19 Range/Units 05:29 WBC 11.7 H (3.8-10.6) k/uL RBC 3.54 L (3.80-5.40) m/uL Hgb 9.5 L (11.4-16.0) gm/dL Hct 29.5 L (34.0-46.0) % Neutrophils # 9.5 H (1.3-7.7) k/uL Assessment and Plan (1) H/O section Current Visit: Yes Status: Acute Code(s): Z98.891 - HISTORY OF UTERINE SCAR FROM PREVIOUS SURGERY SNOMED Code(s): 462716332 (2) Term Current Visit: Yes Status: Acute Code(s): Z34.90 - ENCNTR FOR SUPRVSN OF NORMAL , UNSP, UNSP TRIMESTER SNOMED Code(s): 79325340 Plan: Postop day 1 status post repeat low transverse section. Recovering well. Routine care. Anticipate discharge home tomorrow.
[2019-08-29] MEDS: PRENATAL VIT-IRON-FOLIC ACID 1 EACH CAP PO SCH (12:36)
--- NOTE | 2019-08-29 15:17 | P.PN ---
Progress Note - Text Date: 08/29/2019 Time: 15:17 The patient is status post section Vital signs stable VAS: 0-10 Patient has no complaints of pain. The patient incurred some minimal itching yesterday, this itching is now subsiding. Pain meds to be managed by service.
--- NOTE | 2019-08-30 07:35 | P.DS ---
Providers Date of admission: 08/28/19 06:05 Expected date of discharge: 08/30/19 Attending physician: Bianca Núñez Primary care physician: Stated None - Discharge Diagnosis(es) (1) H/O section Current Visit: Yes Status: Acute (2) Term Current Visit: Yes Status: Acute Hospital Course: This is a 24-year-old 2 now para 2 woman who is admitted at 39 weeks for scheduled repeat low transverse section. History was significant for a prior term and she declined trial of labor. Please see the admission history and physical for details. Following admission to the hospital she went to the operating room where she underwent an uncomplicated repeat low transverse section with a spinal anesthetic. Findings at the time of surgery were significant for a male weighing 9 lbs. 2 oz. with Apgars of 9 at 1 minute and 9 at 5 minutes. Please see the operative report for details. The patient's postoperative course was unremarkable. By postoperative day #1 she was ambulating and voiding without difficulty, tolerating a general diet and had stable vital signs. Her postoperative labs were stable. By postoperative day #2 she continued to do very well. She was ambulating and voiding without difficulty. Her incision appeared well healing, intact without erythema or drainage. She had minimal lochia. Her pain was well-controlled with oral pain medications. She was therefore discharged home with routine instructions for postoperative care and follow-up. Procedures: Repeat low transverse section Patient Condition at Discharge: Good Plan - Discharge Summary New Discharge Prescriptions: No Action Pnv No.95/Ferrous Fum/Folic AC [ Multivitamin Tablet] 1 each PO DAILY Levalbuterol Hfa Inhaler [Xopenex Hfa Inhaler] 1 - 2 puff INHALATION Q6HR PRN PRN Reason: Shortness Of Breath Famotidine [Pepcid] 20 mg PO BID PRN PRN Reason: Heartburn Discharge Medication List Famotidine [Pepcid] 20 mg PO BID PRN 08/26/19 [History] Levalbuterol Hfa Inhaler [Xopenex Hfa Inhaler] 1 - 2 puff INHALATION Q6HR PRN 08/26/19 [History] Pnv No.95/Ferrous Fum/Folic AC [ Multivitamin Tablet] 1 each PO DAILY 08/26/19 [History] Follow up Appointment(s)/Referral(s): Bianca Núñez, [Doctor of Osteopathic Medicine] - 1 Week Activity/Diet/Wound Care/Special Instructions: Follow-up in 2 weeks after surgery in the office. Call the office with any concerning signs or symptoms including fever greater than 101, severe abdominal pain, heavy vaginal bleeding, signs of wound infection, increased swelling or redness of the lower extremities, signs of depression. No driving for 2 weeks after surgery. No heavy lifting or vigorous activity until reevaluated in the office. No intercourse for 6 weeks after delivery. May use [id number] ibuprofen 400-600 mg every 6 hours as needed for pain and or Tylenol Extra Strength every 6 hours as needed for pain. Discharge Disposition: HOME SELF-CARE
[2019-08-30] MEDS: IBUPROFEN 600 MG TAB PO PRN (08:35)
[2019-08-30 09:05] VITALS: BP 112/63; PULSE 89; RESP 16; TEMP 97.8
== END 2019-08-30 11:17 | disposition home or self-care (01) | DRG 788 ==
LOC: 4FBP 06:05
PROVIDERS: ADMIT Obstetrics & Gynecology Obstetrics; ATTEND Obstetrics & Gynecology Obstetrics
PROC: 10D00Z1 Extraction of Products of Conception, Low, Open Approach (ICD-10-PCS; principal; 2019-08-28 08:00)
DX: O34.211 Maternal care for low transverse scar from previous cesarean delivery (principal); O99.52 Diseases of the respiratory system complicating childbirth; K21.9 Gastro-esophageal reflux disease without esophagitis; O99.62 Diseases of the digestive system complicating childbirth; J45.909 Unspecified asthma, uncomplicated; Z37.0 Single live birth; Z3A.39 39 weeks gestation of pregnancy; Z87.891 Personal history of nicotine dependence; Z80.9 Family history of malignant neoplasm, unspecified
CPT/HCPCS: 85025; 86850; 86900; 86901

== ENCOUNTER 2020-07-29 11:32 | Emergency (ER) | payer BC, OTHER ==
--- NOTE | 2020-07-29 12:40 | XR ---
EXAMINATION TYPE: XR chest 2V DATE OF EXAM: 07/29/2020 COMPARISON: NONE TECHNIQUE: PA and lateral views submitted. HISTORY: Fever FINDINGS: Subsegmental changes at the right lung base. No interstitial edema or pneumothorax. No pleural effusi on. No large area of consolidation. Heart size normal. IMPRESSION: 1. Right basilar atelectasis favored over early infiltrate correlate clinically.
[2020-07-29] MEDS ORDERED: AZITHROMYCIN 500 MG TAB PO STA (13:30)
--- NOTE | 2020-07-29 13:31 | ED ---
General Adult HPI - General Chief complaint: Shortness of Breath Stated complaint: Cough,SOB Source: patient Mode of arrival: ambulatory Limitations: no limitations - History of Present Illness Initial comments: 25yo female presenting for cough and fevers. patient states that her and her son have had cough and fevers. she denies dyspnea, chest pain, hemoptysis, leg swelling/calf pain, hx of DVT/PE, immobilization or fracture/surgeries. Patient denies neck stiffnes, sore throat, nausea, vomiting, diarrhea. Occasional headaches/bodyaches, chills. Patient on arrival appears well nontoxic in no acute distress. Oxygenating well on RA in no distress. - Related Data Home Medications Medication Instructions Recorded Confirmed Famotidine [Pepcid] 20 mg PO BID PRN 08/26/19 08/28/19 Levalbuterol Hfa Inhaler [Xopenex 1 - 2 puff INHALATION Q6HR PRN 08/26/19 08/28/19 Hfa Inhaler] Pnv No.95/Ferrous Fum/Folic AC 1 each PO DAILY 08/26/19 08/28/19 [ Multivitamin Tablet] Previous Rx's Medication Instructions Recorded Azithromycin [Zithromax Z-pack (6 0 mg PO DIRECTED #6 tab 07/29/20 tabs)] Allergies Allergy/AdvReac Type Severity Reaction Status Date / Time No Known Allergies Allergy Verified 08/28/19 06:10 Review of Systems ROS Statement: Those systems with pertinent positive or pertinent negative responses have been documented in the HPI. ROS Other: All systems not noted in ROS Statement are negative. Past Medical History Past Medical History: Asthma, GERD/Reflux History of Any Multi-Drug Resistant Organisms: None Reported Past Surgical History: Section Past Anesthesia/Blood Transfusion Reactions: No Reported Reaction, Motion Sickness Past Psychological History: No Psychological Hx Reported Smoking Status: Never smoker Past Alcohol Use History: None Reported Past Drug Use History: None Reported - Past Family History Father Family Medical History: No Reported History Mother Family Medical History: Cancer General Exam - General Exam Comments Initial Comments: General: The patient is awake and alert, in no distress, and does not appear acutely ill. Eye: +3 mm pupils are equal, round and reactive to light, extra-ocular movements are intact. No nystagmus. There is normal conjunctiva bilaterally. No signs of icterus. Ears, nose, mouth and throat: There are moist mucous membranes and no oral lesions. Neck: The neck is supple, there is no tenderness or JVD. Cardiovascular: There is a regular rate and rhythm. No murmur, rub or gallop is appreciated. Respiratory: Lungs are clear to auscultation, respirations are non-labored, breath sounds are equal. No wheezes, stridor, rales, or rhonchi. No retractions no abdominal breathing Musculoskeletal: Normal ROM, no tenderness. Strength 5/5. Sensation intact. Radial pulses equal bilaterally 2+. Neurological: A&O x 3. CN II-XII intact grossly, There are no obvious motor or sensory deficits. Coordination appears grossly intact. Speech is normal. Skin: Skin is warm and dry and no rashes or lesions are noted. No calf pain or swelling Psychiatric: Cooperative, appropriate mood & affect, normal judgment. Limitations: no limitations Course Vital Signs 07/29/20 07/29/20 11:39 14:00 Temperature 98.1 F 98.3 F Pulse Rate 111 H 102 H Respiratory 16 20 Rate Blood Pressure 122/81 121/65 O2 Sat by Pulse 97 95 Oximetry Medical Decision Making - Medical Decision Making Covid (-), however patient son return positive that she brought with her. Patient most likely has false (-) and is suspected to be covid (+). Patient at this time. Appears well nontoxic and will be discharged with pcp f/u. patietn is to return for dyspnea and i recommended home oxygen monitoring. patietn discharged appearing well. - Lab Data Lab Results 07/29/20 Range/Units 12:13 Coronavirus (PCR) Not Detected (Not Detectd) Disposition Clinical Impression: Cough, Dyspnea Disposition: HOME SELF-CARE Condition: Good Instructions (If sedation given, give patient instructions): Pneumonia (ED), Atelectasis (ED) Prescriptions: Azithromycin [Zithromax Z-pack (6 tabs)] 0 mg PO DIRECTED #6 tab Is patient prescribed a controlled substance at d/c from ED?: No Referrals: Maurisio Cardenas DO [Primary Care Provider] - 1-2 days Time of Disposition: 13:31
[2020-07-29 14:40] VITALS: BP 121/65; PULSE 102; RESP 20; TEMP 98.3
== END 2020-07-29 14:00 | disposition home or self-care (01) ==
LOC: EC 11:32
DX: R06.02 Shortness of breath (principal); R05 Cough; R50.9 Fever, unspecified; J45.909 Unspecified asthma, uncomplicated; K21.9 Gastro-esophageal reflux disease without esophagitis; Z20.822 Contact with and (suspected) exposure to COVID-19; Z79.51 Long term (current) use of inhaled steroids; Z79.899 Other long term (current) drug therapy
CPT/HCPCS: 71046; 87635; 99285

== ENCOUNTER 2020-12-15 17:14 | Emergency (ER) | payer BC, OTHER ==
[2020-12-15] MEDS ORDERED: SODIUM CHLORIDE 0.9% 1,000 ML IV STA (17:51)
[2020-12-15 18:17] LABS: Basophils % (A) 0 %; Eosinophils # (A) 0.2 k/uL (0-0.7); Eosinophils % (A) 2 %; HCT 39.1 % (34.0-46.0); HGB 13.7 gm/dL (11.4-16.0); Lymphocytes # (A) 2.7 k/uL (1.0-4.8); Lymphocytes % (A) 27 %; MCH 31.2 pg (25.0-35.0); MCHC 35.1 g/dL (31.0-37.0); MCV 89.1 fL (80.0-100.0); Mean Platelet Volume 6.6; Monocytes # (A) 0.3 k/uL (0-1.0); Monocytes % (A) 3 %; Neutrophils # (A) 6.5 k/uL (1.3-7.7); Neutrophils % (A) 66 %; Platelet Count 264 k/uL (150-450); RBC 4.39 m/uL (3.80-5.40); RDW 13.1 % (11.5-15.5); WBC 9.9 k/uL (3.8-10.6)
[2020-12-15 18:25] LABS: INR 0.9 (<1.2); Partial Thromboplastin Time 22.8 sec (22.0-30.0); Prothrombin Time 10.2 sec (9.0-12.0)
[2020-12-15 18:28] LABS: ALT 15 U/L (4-34); AST 25 U/L (14-36); African American GFR (CKD) >90 (>60 ml/min/1.73 sqM); Albumin 4.9 g/dL (3.5-5.0); Alkaline Phosphatase 72 U/L (38-126); Anion Gap 11 mmol/L; Blood Urea Nitrogen 15 mg/dL (7-17); Calcium 9.8 mg/dL (8.4-10.2); Carbon Dioxide 20 mmol/L (22-30); Chloride 109 mmol/L (98-107); Glucose 96 mg/dL (74-99); Non-African American GFR(CKD) >90 (>60 ml/min/1.73 sqM); Potassium 4.1 mmol/L (3.5-5.1); Sodium 140 mmol/L (137-145); Total Bilirubin 0.5 mg/dL (0.2-1.3); Total Protein 7.4 g/dL (6.3-8.2)
[2020-12-15 18:36] LABS: Appearance,Urine Cloudy (Clear); Bilirubin,Urine Negative (Negative); Blood,Urine Negative (Negative); Color,Urine Yellow; Glucose,Urine (UA) Negative (Negative); Ketones,Urine Negative (Negative); Leukocyte Esterase,Urine Small (Negative); Mucus,Urine Many /hpf; Nitrite,Urine Negative (Negative); PH, Urine 6.5 (5.0-8.0); Protein,Urine Trace (Negative); RBC,Urine 1 /hpf (0-5); Specific Gravity,Urine 1.026 (1.001-1.035); Squamous Epithelial Cell,Urine 20 /hpf (0-4); Urobilinogen,Urine <2.0 mg/dL (<2.0); WBC,Urine 3 /hpf (0-5)
--- NOTE | 2020-12-15 18:57 | XR ---
EXAMINATION TYPE: XR chest 2V DATE OF EXAM: 12/15/2020 COMPARISON: 07/29/2020. HISTORY: Chest pain and shortness of breath. TECHNIQUE: Frontal and lateral views of the chest are obtained. FINDINGS: There is no focal air space opacity, pleural effusion, or pneumothorax seen. The cardiac silhouette size is within normal limits. The osseous structures are intact. IMPRESSION: No acute cardiopulmonary process.
--- NOTE | 2020-12-15 19:16 | ED ---
General Adult HPI - General Chief complaint: Shortness of Breath Stated complaint: NORRIS Time Seen by Provider: 12/15/20 17:44 Source: patient, RN notes reviewed Mode of arrival: ambulatory Limitations: no limitations - History of Present Illness Initial comments: Patient is a 25-year-old female that presents to the emergency department complaining of shortness of breath and cough times one. She noted that she was Covid-positive back in August. She denied any other symptoms or complaints at this time. She was a well-appearing 25-year-old female in no apparent distress or pain while laying in bed during exam and interview. She notes she does have a history of asthma but no drooling issues. She denied any chest pain headache nausea vomiting diarrhea constipation fever fatigue chills. - Related Data Home Medications Medication Instructions Recorded Confirmed Famotidine [Pepcid] 20 mg PO BID PRN 08/26/19 08/28/19 Levalbuterol Hfa Inhaler [Xopenex 1 - 2 puff INHALATION Q6HR PRN 08/26/19 08/28/19 Hfa Inhaler] Pnv No.95/Ferrous Fum/Folic AC 1 each PO DAILY 08/26/19 08/28/19 [ Multivitamin Tablet] Previous Rx's Medication Instructions Recorded Azithromycin [Zithromax Z-pack (6 0 mg PO DIRECTED #6 tab 07/29/20 tabs)] Allergies Allergy/AdvReac Type Severity Reaction Status Date / Time No Known Allergies Allergy Verified 12/15/20 17:37 Review of Systems ROS Statement: Those systems with pertinent positive or pertinent negative responses have been documented in the HPI. ROS Other: All systems not noted in ROS Statement are negative. Past Medical History Past Medical History: Asthma, GERD/Reflux History of Any Multi-Drug Resistant Organisms: None Reported Past Surgical History: Section Past Anesthesia/Blood Transfusion Reactions: No Reported Reaction, Motion Sickness Past Psychological History: No Psychological Hx Reported Smoking Status: Never smoker Past Alcohol Use History: None Reported Past Drug Use History: None Reported - Past Family History Father Family Medical History: No Reported History Mother Family Medical History: Cancer General Exam Limitations: no limitations General appearance: alert, in no apparent distress Head exam: Present: atraumatic, normocephalic, normal inspection Eye exam: Present: normal appearance, PERRL, EOMI. Absent: scleral icterus, conjunctival injection, periorbital swelling Neck exam: Present: normal inspection Respiratory exam: Present: normal lung sounds bilaterally. Absent: respiratory distress, wheezes, rales, rhonchi, stridor Cardiovascular Exam: Present: regular rate, normal rhythm, normal heart sounds. Absent: systolic murmur, diastolic murmur, rubs, gallop, clicks GI/Abdominal exam: Present: soft, normal bowel sounds. Absent: distended, tend erness, guarding, rebound, rigid Extremities exam: Present: normal inspection, full ROM, normal capillary refill. Absent: tenderness, pedal edema, joint swelling, calf tenderness Neurological exam: Present: alert, oriented X3 Psychiatric exam: Present: normal affect, normal mood Skin exam: Present: warm, dry, intact, normal color. Absent: rash Course Vital Signs 12/15/20 17:33 Temperature 98.7 F Pulse Rate 84 Respiratory 18 Rate Blood Pressure 118/77 O2 Sat by Pulse 98 Oximetry EKG Findings - EKG Comments: EKG Findings:: Ventricular rate 66 bpm, NM interval 134 ms, QRS duration 84 ms, QTC 400 ms, PRT axes 60/68/40. Normal sinus rhythm with sinus arrhythmia. Normal ECG. Medical Decision Making - Medical Decision Making 25-year-old female complaining of upper respiratory tract symptoms including shortness of breath. Labs, EKG, child monitor, chest x-ray ordered. Covid test ordered. Covid test negative. Labs unremarkable. Chest x-ray negative for any acute cardiopulmonary process. Case discussed with Dr. Buckley outpatient discharge home with follow-up to primary care. - Lab Data Result diagrams: 12/15/20 18:12/15/20 18:01 Lab Results 12/15/20 12/15/20 12/15/20 Range/Units 18:01 18:01 18:01 WBC 9.9 (3.8-10.6) k/uL RBC 4.39 (3.80-5.40) m/uL Hgb 13.7 (11.4-16.0) gm/dL Hct 39.1 (34.0-46.0) % MCV 89.1 (80.0-100.0) fL MCH 31.2 (25.0-35.0) pg MCHC 35.1 (31.0-37.0) g/dL RDW 13.1 (11.5-15.5) % Plt Count 264 (150-450) k/uL MPV 6.6 Neutrophils % 66 % Lymphocytes % 27 % Monocytes % 3 % Eosinophils % 2 % Basophils % 0 % Neutrophils # 6.5 (1.3-7.7) k/uL Lymphocytes # 2.7 (1.0-4.8) k/uL Monocytes # 0.3 (0-1.0) k/uL Eosinophils # 0.2 (0-0.7) k/uL Basophils # 0.0 (0-0.2) k/uL PT 10.2 (9.0-12.0) sec INR 0.9 (<1.2) APTT 22.8 (22.0-30.0) sec Sodium (137-145) mmol/L Potassium (3.5-5.1) mmol/L Chloride (98-107) mmol/L Carbon Dioxide (22-30) mmol/L Anion Gap mmol/L BUN (7-17) mg/dL Creatinine (0.52-1.04) mg/dL Est GFR (CKD-EPI)AfAm (>60 ml/min/1.73 sqM) Est GFR (CKD-EPI)NonAf (>60 ml/min/1.73 sqM) Glucose (74-99) mg/dL Calcium (8.4-10.2) mg/dL Total Bilirubin (0.2-1.3) mg/dL AST (14-36) U/L ALT (4-34) U/L Alkaline Phosphatase (38-126) U/L Troponin I (0.000-0.034) ng/mL Total Protein (6.3-8.2) g/dL Albumin (3.5-5.0) g/dL Urine Color Yellow Urine Appearance Cloudy H (Clear) Urine pH 6.5 (5.0-8.0) Ur Specific [place] 1.026 (1.001-1.035) Urine Protein Trace H (Negative) Urine Glucose (UA) Negative (Negative) Urine Ketones Negative (Negative) Urine Blood Negative (Negative) Urine Nitrite Negative (Negative) Urine Bilirubin Negative (Negative) Urine Urobilinogen <2.0 (<2.0) mg/dL Ur Leukocyte Esterase Small H (Negative) Urine RBC 1 (0-5) /hpf Urine WBC 3 (0-5) /hpf Ur Squamous Epith Cells 20 H (0-4) /hpf Urine Mucus Many H (None) /hpf Urine HCG, Qual (Not Detectd) Coronavirus (PCR) (Not Detectd) 12/15/20 12/15/20 12/15/20 Range/Units 18:01 18:01 18:01 WBC (3.8-10.6) k/uL RBC (3.80-5.40) m/uL Hgb (11.4-16.0) gm/dL Hct (34.0-46.0) % MCV (80.0-100.0) fL MCH (25.0-35.0) pg MCHC (31.0-37.0) g/dL RDW (11.5-15.5) % Plt Count (150-450) k/uL MPV Neutrophils % % Lymphocytes % % Monocytes % % Eosinophils % % Basophils % % Neutrophils # (1.3-7.7) k/uL Lymphocytes # (1.0-4.8) k/uL Monocytes # (0-1.0) k/uL Eosinophils # (0-0.7) k/uL Basophils # (0-0.2) k/uL PT (9.0-12.0) sec INR (<1.2) APTT (22.0-30.0) sec Sodium 140 (137-145) mmol/L Potassium 4.1 (3.5-5.1) mmol/L Chloride 109 H (98-107) mmol/L Carbon Dioxide 20 L (22-30) mmol/L Anion Gap 11 mmol/L BUN 15 (7-17) mg/dL Creatinine 0.59 (0.52-1.04) mg/dL Est GFR (CKD-EPI)AfAm >90 (>60 ml/min/1.73 sqM) Est GFR (CKD-EPI)NonAf >90 (>60 ml/min/1.73 sqM) Glucose 96 (74-99) mg/dL Calcium 9.8 (8.4-10.2) mg/dL Total Bilirubin 0.5 (0.2-1.3) mg/dL AST 25 (14-36) U/L ALT 15 (4-34) U/L Alkaline Phosphatase 72 (38-126) U/L Troponin I <0.012 (0.000-0.034) ng/mL Total Protein 7.4 (6.3-8.2) g/dL Albumin 4.9 (3.5-5.0) g/dL Urine Color Urine Appearance (Clear) Urine pH (5.0-8.0) Ur Specific Cheney (1.001-1.035) Urine Protein (Negative) Urine Glucose (UA) (Negative) Urine Ketones (Negative) Urine Blood (Negative) Urine Nitrite (Negative) Urine Bilirubin (Negative) Urine Urobilinogen (<2.0) mg/dL Ur Leukocyte Esterase (Negative) Urine RBC (0-5) /hpf Urine WBC (0-5) /hpf Ur Squamous Epith Cells (0-4) /hpf Urine Mucus (None) /hpf Urine HCG, Qual Not Detected (Not Detectd) Coronavirus (PCR) (Not Detectd) 12/15/20 Range/Units 18:01 WBC (3.8-10.6) k/uL RBC (3.80-5.40) m/uL Hgb (11.4-16.0) gm/dL Hct (34.0-46.0) % MCV (80.0-100.0) fL MCH (25.0-35.0) pg MCHC (31.0-37.0) g/dL RDW (11.5-15.5) % Plt Count (150-450) k/uL MPV Neutrophils % % Lymphocytes % % Monocytes % % Eosinophils % % Basophils % % Neutrophils # (1.3-7.7) k/uL Lymphocytes # (1.0-4.8) k/uL Monocytes # (0-1.0) k/uL Eosinophils # (0-0.7) k/uL Basophils # (0-0.2) k/uL PT (9.0-12.0) sec INR (<1.2) APTT (22.0-30.0) sec Sodium (137-145) mmol/L Potassium (3.5-5.1) mmol/L Chloride (98-107) mmol/L Carbon Dioxide (22-30) mmol/L Anion Gap mmol/L BUN (7-17) mg/dL Creatinine (0.52-1.04) mg/dL Est GFR (CKD-EPI)AfAm (>60 ml/min/1.73 sqM) Est GFR (CKD-EPI)NonAf (>60 ml/min/1.73 sqM) Glucose (74-99) mg/dL Calcium (8.4-10.2) mg/dL Total Bilirubin (0.2-1.3) mg/dL AST (14-36) U/L ALT (4-34) U/L Alkaline Phosphatase (38-126) U/L Troponin I (0.000-0.034) ng/mL Total Protein (6.3-8.2) g/dL Albumin (3.5-5.0) g/dL Urine Color Urine Appearance (Clear) Urine pH (5.0-8.0) Ur Specific [place]ney (1.001-1.035) Urine Protein (Negative) Urine Glucose (UA) (Negative) Urine Ketones (Negative) Urine Blood (Negative) Urine Nitrite (Negative) Urine Bilirubin (Negative) Urine Urobilinogen (<2.0) mg/dL Ur Leukocyte Esterase (Negative) Urine RBC (0-5) /hpf Urine WBC (0-5) /hpf Ur Squamous Epith Cells (0-4) /hpf Urine Mucus (None) /hpf Urine HCG, Qual (Not Detectd) Coronavirus (PCR) Not Detected (Not Detectd) - EKG Data -: EKG Interpreted by Me EKG shows normal: sinus rhythm Rate: normal EKG Comments: Ventricular rate 66 bpm, NM interval 134 ms, QRS duration 84 ms, QTC 400 ms, PRT axes 60/68/40. Normal sinus rhythm with sinus arrhythmia. Normal ECG. Disposition Clinical Impression: Upper respiratory tract infection Disposition: HOME SELF-CARE Condition: Stable Instructions (If sedation given, give patient instructions): Upper Respiratory Infection (ED) Additional Instructions: Please return to the Emergency Department if symptoms worsen or any other c oncerns. Follow-up with primary care in the next 1-2 days. Conservative management with Tylenol Motrin, plenty rest, plenty of fluids. Is patient prescribed a controlled substance at d/c from ED?: No Referrals: Maurisio Cardenas DO [Primary Care Provider] - 1-2 days Time of Disposition: 19:16
[2020-12-15 19:29] VITALS: BP 106/71; PULSE 73; RESP 16; TEMP 97.9
== END 2020-12-15 19:29 | disposition home or self-care (01) ==
LOC: EC 17:14
DX: J06.9 Acute upper respiratory infection, unspecified (principal); J45.909 Unspecified asthma, uncomplicated; K21.9 Gastro-esophageal reflux disease without esophagitis; Z20.822 Contact with and (suspected) exposure to COVID-19
CPT/HCPCS: 36415; 71046; 80053; 81001; 81025; 84484; 85025; 85610; 85730; 87635; 93005; 96360; 99285

== ENCOUNTER → 2021-09-05 | Outpatient (CLI) | payer BC, OTHER ==
--- NOTE | 2021-09-05 11:47 | US ---
EXAMINATION TYPE: US pelvis complete transvag DATE OF EXAM: 09/05/2021 COMPARISON: NONE CLINICAL HISTORY: R10.2 PELVIC PAIN. pain IUD placement TECHNIQUE: Transvaginal (TV) and Transabdominal (TA) . EXAM MEASUREMENTS: Uterus: 7.3 x 3.5 x 5.3 cm Endometrial Stripe: .6 cm Right Ovary: 2.7 x 1.5 x 2.3 cm Left Ovary: 3.4 x 1.4 x 3.0 cm 1. Uterus: Anteverted wnl 2. Endometrium: wnl IUD appears in place 3. Right Ovary: wnl 4. Left Ovary: Complex area seen measuring 1.9 x 1.1 x 2.0 cm. 5. Bilateral Adnexa: wnl 6. Posterior cul-de-sac: wnl Heterogeneous anteverted uterus. Endometrial stripe shows shadowing linear hyperechoic structure cons istent with IUD satisfactory in position during real time scanning less well seen on still images eron ed. No free fluid in the pelvis. Both ovaries seen. Left ovary has 1.9 x 1.1 x 2.0 cm thin-walled cyst with thin internal septa. Suspe ct involuting corpus luteal cyst. IMPRESSION: As above. No suspicious finding to account for patient's symptoms of pain.
== END | disposition home or self-care (01) ==
LOC: RADUSWWP 11:02
PROVIDERS: ATTEND Obstetrics & Gynecology Obstetrics
DX: R10.2 Pelvic and perineal pain (principal); R68.89 Other general symptoms and signs
CPT/HCPCS: 76830; 76856

== ENCOUNTER 2021-10-13 22:54 | Emergency (ER) | payer BC, OTHER ==
[2021-10-13 23:21] VITALS: RESP 18; TEMP 97.8
--- NOTE | 2021-10-14 00:02 | XR ---
EXAMINATION TYPE: XR ankle complete LT DATE OF EXAM: 10/13/2021 COMPARISON: NONE HISTORY: Ankle pain TECHNIQUE: 3 view FINDINGS: Ankle mortise is anatomic. Joint spaces are normal. Soft tissues appear normal. IMPRESSION: Normal left ankle exam.
--- NOTE | 2021-10-14 00:06 | XR ---
EXAMINATION TYPE: XR foot complete LT DATE OF EXAM: 10/13/2021 COMPARISON: NONE HISTORY: Pain TECHNIQUE: 3 views FINDINGS: Metatarsals are intact. The toes are intact. I see no fracture nor dislocation. The joint s paces are normal. IMPRESSION: Negative left foot exam.
--- NOTE | 2021-10-14 00:13 | ED ---
Fall HPI - General Chief Complaint: Fall Stated Complaint: Fall, Left Foot Injury Source: patient Mode of arrival: wheelchair - History of Present Illness Initial Comments: Patient states she was going arthritide about something and trunk [employer] [place] when she inadvertently sprained her left foot. She states she twisted it. She cannot put any weight on it. Patient complaining of pain and swelling to the lateral aspect of the foot. Lesser extent the ankle. Patient did sustain an abrasion to the right knee which she states is not painful. Tetanus is up-to-date. Patient did not take any medications prior to arrival. [facility] multiple sprains. Patient states that she has ligament laxity chronically. No headache, no fever or chills, no changes in vision or hearing, no sore throat or difficulty with speech, no neck pain, no chest pain or shortness of breath, no abdominal pain, no nausea or vomiting, no changes in urination or bowel movements, no numbness or tingling, , no skin rashes or lesions. - Related Data Home Medications Medication Instructions Recorded Confirmed Dextroamphetamine/Amphetamine 20 mg PO QAM 12/15/20 12/15/20 [Adderall Xr] Allergies Allergy/AdvReac Type Severity Reaction Status Date / Time No Known Allergies Allergy Verified 10/13/21 23:21 Review of Systems ROS Statement: Those systems with pertinent positive or pertinent negative responses have been documented in the HPI. ROS Other: All systems not noted in ROS Statement are negative. Past Medical History Past Medical History: Asthma, GERD/Reflux History of Any Multi-Drug Resistant Organisms: None Reported Past Surgical History: Section Past Anesthesia/Blood Transfusion Reactions: No Reported Reaction, Motion Sickness Past Psychological History: No Psychological Hx Reported Smoking Status: Never smoker Past Alcohol Use History: None Reported Past Drug Use History: None Reported - Past Family History Father Family Medical History: No Reported History Mother Family Medical History: Cancer General Exam Limitations: no limitations General appearance: alert, in no apparent distress Head exam: Present: atraumatic, normocephalic, normal inspection Eye exam: Present: normal appearance, PERRL, EOMI. Absent: scleral icterus, conjunctival injection, periorbital swelling ENT exam: Present: normal exam, mucous membranes moist Neck exam: Present: normal inspection. Absent: tenderness, meningismus, lymphadenopathy Respiratory exam: Present: normal lung sounds bilaterally. Absent: respiratory distress, wheezes, rales, rhonchi, stridor Cardiovascular Exam: Present: regular rate, normal rhythm, normal heart sounds. Absent: systolic murmur, diastolic murmur, rubs, gallop, clicks GI/Abdominal exam: Present: soft, normal bowel sounds. Absent: distended, tenderness, guarding, rebound, rigid Extremities exam: Present: tenderness, normal capillary refill, joint swelling (Patient has tenderness and swelling at the lateral aspect of her foot at the tarsometatarsal joint area. No break in skin integrity in this area. No specific bony point tenderness.). Absent: normal inspection, full ROM, pedal edema, calf tenderness Back exam: Present: normal inspection Neurological exam: Present: alert, oriented X3, CN II-XII intact Psychiatric exam: Present: normal affect, normal mood Skin exam: Present: warm, dry, intact, normal color, abrasion (Superficial abrasion noted to the anterior aspect of the right knee). Absent: rash, cyanosis, diaphoretic, erythema, urticaria, vesicles, petechiae, pallor, mottled Course Vital Signs 10/13/21 23:15 Temperature 97.8 F Pulse Rate 93 Respiratory 18 Rate Blood Pressure 122/79 O2 Sat by Pulse 98 Oximetry Medical Decision Making - Medical Decision Making Patient presents with what is likely a soft tissue injury. This certainly could be a ligamentous tear I did inform the patient this. Patient is having a hard time bearing weight. We will apply an Ki wrap and keep the patient nonweightbearing. Work restrictions given. Patient refused acetaminophen and ibuprofen. Patient did have an abrasion to the right knee which was superficial and nontender. X-rays read as negative for acute fracture or dislocation by me. This was confirmed by radiology. Patient was told to return to the ER for any signs or symptoms worsen. Told to return immediately if any other problems arise. All questions answered. Treatment plan discussed. Patient in agreement Every effort has been made to ensure accuracy of this dictation. However, due to the limitations of electronic medical records and dictation devices, errors in charting still occur. Checking Department Supervisor, Dr. Villegas - Radiology Data Radiology results: report reviewed, image reviewed Disposition Clinical Impression: Sprain of tarsometatarsal ligament of left foot, initial encounter, Abrasion, right knee, initial encounter Disposition: HOME SELF-CARE Condition: Stable Instructions (If sedation given, give patient instructions): Crutch Instructions (ED), Foot Sprain (ED), Abrasion (ED) Additional Instructions: Weightbearing as tolerated. Use the crutches if needed. Follow-up with orthopedics as directed. Call Saturday at 8 AM for follow-up appointment. Use [id number] acetaminophen and/or ibuprofen for pain control. Apply ice 20 minutes on and off for times daily. Elevate when possible. Return to the ER immediately if any symptoms worsen, new symptoms arise, or any other problems develop. Is patient prescribed a controlled substance at d/c from ED?: No Referrals: Karolina Quintanilla DO [Doctor of Osteopathic Medicine] - 10/16/21 Time of Disposition: 00:12
[2021-10-14 00:57] VITALS: BP 100/72; PULSE 97
== END 2021-10-14 00:57 | disposition home or self-care (01) ==
LOC: EC 22:54
DX: S93.622A Sprain of tarsometatarsal ligament of left foot, initial encounter (principal); S80.211A Abrasion, right knee, initial encounter; J45.909 Unspecified asthma, uncomplicated; W18.49XA Other slipping, tripping and stumbling without falling, initial encounter
CPT/HCPCS: 99283

== ENCOUNTER 2023-07-17 04:50 | Emergency (ER) | payer BC, OTHER ==
[2023-07-17] MEDS: LIDOCAINE 1% INJ 10MG/ML (20 ML MDV) SQ ONE (05:11)
[2023-07-17] MEDS: BACITRACIN OINT 1 EACH PACKET TOPICAL ONE (05:15)
--- NOTE | 2023-07-17 05:54 | ED ---
General Adult HPI - General Chief complaint: Extremity Injury, Upper Stated complaint: Finger Lacerations, Face Injury Time Seen by Provider: 07/17/23 04:54 Source: patient, RN notes reviewed, old records reviewed Mode of arrival: ambulatory - History of Present Illness Initial comments: 27-year-old female presents with finger laceration and facial injury. Patient has history of vasovagal syncope with seeing any count of blood. She was cutting potatoes several hours prior to arrival and had caught her right index and right middle finger. She states there was a significant amount of bleeding and when she saw the blood she did pass out striking her face on the counter. She was momentarily unconscious. She states that this has happened in the past when she saw blood. She denies headache. Reports pain at the site of injury. She states she had washed her finger laceration at home prior to arrival. - Related Data Home Medications Medication Instructions Recorded Confirmed Dextroamphetamine/Amphetamine 20 mg PO QAM 12/15/20 12/15/20 [Adderall Xr] Previous Rx's Medication Instructions Recorded Cephalexin [Keflex] 500 mg PO TID 5 Days #15 cap 07/17/23 Allergies Allergy/AdvReac Type Severity Reaction Status Date / Time albuterol Allergy Dyspnea Verified 07/17/23 04:59 Review of Systems ROS Statement: Those systems with pertinent positive or pertinent negative responses have been documented in the HPI. ROS Other: All systems not noted in ROS Statement are negative. Past Medical History Past Medical History: Asthma, GERD/Reflux History of Any Multi-Drug Resistant Organisms: None Reported Past Surgical History: Section Past Anesthesia/Blood Transfusion Reactions: No Reported Reaction, Motion Sickness Past Psychological History: No Psychological Hx Reported Smoking Status: Never smoker Past Alcohol Use History: None Reported Past Drug Use History: None Reported - Past Family History Father Family Medical History: No Reported History Mother Family Medical History: Cancer General Exam General appearance: alert, in no apparent distress Head exam: Present: other (Right infraorbital swelling, superficial abrasion) Eye exam: Present: PERRL, EOMI, periorbital swelling, periorbital tenderness Neck exam: Present: normal inspection. Absent: tenderness, meningismus Respiratory exam: Present: normal lung sounds bilaterally. Absent: respiratory distress, wheezes Cardiovascular Exam: Present: regular rate, normal rhythm GI/Abdominal exam: Present: soft. Absent: distended, tenderness, guarding Extremities exam: Present: other (1.5 cm laceration on the palmar aspect of the right third digit middle phalanx) Neurological exam: Present: alert, oriented X3 Psychiatric exam: Present: normal affect, normal mood Skin exam: Present: warm Course Vital Signs 07/17/23 07/17/23 04:54 06:12 Temperature 97.5 F L 97.5 F L Pulse Rate 110 H 90 Respiratory 20 14 Rate Blood Pressure 124/79 110/69 O2 Sat by Pulse 98 98 Oximetry Procedures - Laceration Laceration #1 Consent Obtained: verbal consent Indication: laceration Site: hand Size (cm): 2 Description: linear Anesthetic Used: lidocaine 1% Anesthesia Technique: local infiltration Pre-repair: wound explored Type of Sutures: nylon Size of Sutures: 5-0 Number of Sutures: 3 Technique: simple, interrupted Complications: other (Possible tendon injury) Patient Tolerated Procedure: well Medical Decision Making - Medical Decision Making Was pt. sent in by a medical professional or institution (, PA, VENIPUNCTURIST, urgent care, hospital, or half-way...) When possible be specific @ -No Did you speak to anyone other than the patient for history (EMS, parent, family, police, friend...)? What history was obtained from this source @ -No Did you review nursing and triage notes (agree or disagree)? Why? @ -I reviewed and agree with nursing and triage notes Were old charts reviewed (outside hosp., previous admission, EMS record, old EKG, old radiological studies, urgent care reports/EKG's, half-way records)? Report findings @ -No old charts were reviewed Differential Diagnosis (chest pain, altered mental status, abdominal pain women, abdominal pain men, vaginal bleeding, weakness, fever, dyspnea, syncope, headache, dizziness, GI bleed, back pain, seizure, CVA, palpatations, mental hea lth, musculoskeletal)? @ -Not applicable EKG interpreted by me (3pts min.). @ -As above X-rays interpreted by me (1pt min.). @ -None done CT interpreted by me (1pt min.). @ -None done U/S interpreted by me (1pt. min.). @ -None done What testing was considered but not performed or refused? (CT, X-rays, U/S, labs)? Why? @ -None What meds were considered but not given or refused? Why? @ -None Did you discuss the management of the patient with other professionals (professionals i.e. , PA, VENIPUNCTURIST, lab, RT, psych nurse, social insurance analyst, developmental education instructor, teacher, svp chief marketing officer, community case manager)? Give summary @ -No Was smoking cessation discussed for >3mins.? @ -No Was critical care preformed (if so, how long)? @ -No Were there social determinants of health that impacted care today? How? (Homelessness, low income, unemployed, alcoholism, drug addiction, transportation, low edu. Level, literacy, decrease access to med. care, nursing home, rehab)? @ -No Was there de-escalation of care discussed even if they declined (Discuss DNR or withdrawal of care, Hospice)? DNR status @ -No What co-morbidities impacted this encounter? (DM, HTN, Smoking, COPD, CAD, Cancer, CVA, ARF, Chemo, Hep., AIDS, mental health diagnosis, sleep apnea, morbid obesity)? @ -None Was patient admitted / discharged? Hospital course, mention meds given and route, prescriptions, significant lab abnormalities, going to OR and other pertinent info. @ -27-year-old female with laceration to the right third digit, superficial laceration to the second digit. Vasovagal syncope with facial trauma. I did repair the laceration with nylon suture. I have suspicion for tendon injury although I was unable to identify a definitive tendon injury the patient was not able to flex at the DIP. Patient given hand surgery follow-up. Facial injury, CT brain and facial bones pending. Undiagnosed new problem with uncertain prognosis? @ -No Drug Therapy requiring intensive monitoring for toxicity (Heparin, Nitro, Insulin, Cardizem)? @ -No Were any procedures done? @ -Yes laceration repair Diagnosis/symptom? @ -Default Acute, or Chronic, or Acute on Chronic? @ -Default Uncomplicated (without systemic symptoms) or Complicated (systemic symptoms)? @ -Default Side effects of treatment? @ -No Exacerbation, Progression, or Severe Exacerbation? @ -No Poses a threat to life or bodily function? How? (Chest pain, USA, MD, pneumonia, PE, COPD, DKA, ARF, appy, cholecystitis, CVA, Diverticulitis, Homicidal, Suicidal, threat to staff... and all critical care pts) @ -No Disposition Clinical Impression: Concussion, Vasovagal syncope, Finger laceration Disposition: HOME SELF-CARE Instructions (If sedation given, give patient instructions): Care For Your Stitches (DC), Laceration (ED), Concussion (ED) Additional Instructions: Please return for suture removal in 10 days. Prescriptions: Cephalexin [Keflex] 500 mg PO TID 5 Days #15 cap Is patient prescribed a controlled substance at d/c from ED?: No Referrals: Maurisio Cardenas DO [Primary Care Provider] - 1-2 days Hans Cooney DO [Doctor of Osteopathic Medicine] - 1-2 days Time of Disposition: 07:00
--- NOTE | 2023-07-17 07:30 | CT ---
EXAMINATION TYPE: CT brain wo con, CT facial bones wo con DATE OF EXAM: 07/17/2023 COMPARISON: HISTORY: 27-year-old female fall, syncope at approx 12 the patient stated she cut right index and mid dle finger while cutting potatoes. The pt stated at approx 2am she was cleaning the finger that had c ontinued to bleed and states she "passed out". states that she may have hit her face on the marble co unter[place]. stated she was on the floor for maybe 5 minutes, and woke her boyfriend. ATTN RT CHEEK AND UPPER LIP TECHNIQUE: Examination of the head and facial bones were done without intravenous contrast. Coronal and sagittal reconstructions performed. CT DLP: 1301.2 (accession [id number]), combined w/ brain-1301.2 (accession [id number]) mGycm Automated exposure control for dose reduction was used. FINDINGS: HEAD: There is no evidence of acute intracranial hemorrhage, acute ischemic changes, mass, mass-effect, or extra-axial fluid collection. There is no effacement of cerebral sulci or basal subarachnoid cister ns. There is no hydrocephalus. There is no midline shift. Mclaughlin-white matter distinction is preserv ed. Suggestion of a prominent perivascular space right basal ganglia. No calvarial fracture. Mastoid air cells are well pneumatized. FACIAL BONES: The mandible and TMJs are intact. The pterygoid plates and zygomatic arches are intact. No nasal bone fracture is seen. Pronounced premaxillary soft tissue swelling with a focal subcutaneous soft tissue hematoma measuring 2.5 x 1.4 x 0.9 cm. Contiguous infraorbital soft tissue swelling on the right. Orbits and globes appear intact. There is a nondisplaced fracture involving the peripheral aspect of the anterior wall of the right ma xillary sinus just underlying the hematoma. A fracture line courses vertically. There is some layering hemorrhagic fluid right maxillary sinus. [id number] mucosal thickening f mishel of the left maxillary sinus and trace mucosal thickening scattered within the ethmoid air cells. IMPRESSION (facial bones and head): 1. Nondisplaced vertical fracture involving the anterior wall of the right maxillary sinus. Some laye ring hemorrhagic fluid within the right maxillary sinus. 2. Prominent premaxillary soft tissue swelling with a focal 2.5 x 1.4 x 0.9 cm soft tissue hematoma. Contiguous soft tissue swelling extending to the right infraorbital region. 3. No acute intracranial abnormality seen.
[2023-07-17 08:12] VITALS: BP 94/71; PULSE 98; RESP 18; TEMP 97.6
== END 2023-07-17 07:55 | disposition home or self-care (01) ==
LOC: EC 04:50
DX: S06.0X9A Concussion with loss of consciousness of unspecified duration, initial encounter (principal); S61.212A Laceration without foreign body of right middle finger without damage to nail, initial encounter; S61.210A Laceration without foreign body of right index finger without damage to nail, initial encounter; S00.81XA Abrasion of other part of head, initial encounter; R55 Syncope and collapse; Z88.8 Allergy status to other drugs, medicaments and biological substances; W26.9XXA Contact with unspecified sharp object(s), initial encounter; W22.09XA Striking against other stationary object, initial encounter
CPT/HCPCS: 12001; 99284; 70486; 70450; J2001